=== PATIENT | male | born 1965 | race Caucasian/White ===

== ENCOUNTER 2023-08-19 11:54 | Outpatient (OUT) | payer BC, SELFPAY ==
[2023-08-19 12:10] LABS: Basophils Percent Auto 0.5 % (0.2-2.0); Eosinophils Absolute Auto 0.2 10^3/uL (0.0-0.7); Eosinophils Percent Auto 2.4 % (0.9-7.0); Hematocrit 49.7 % (42.0-54.0); Hemoglobin 16.3 g/dL (14.0-18.0); Immature Granulocytes Abs Auto 0.03 10^3/uL (0.00-0.03); Immature Granulocytes Pct Auto 0.4 % (0.0-0.5); Lymphocytes Absolute Auto 2.9 10^3/uL (1.2-3.8); Lymphocytes Percent Auto 37.5 % (20.5-60.0); Mean Corpuscular HGB Conc 32.8 g/dL (29.9-35.2); Mean Corpuscular Hemoglobin 30.5 pg (25.9-34.0); Mean Corpuscular Volume 93.1 fL (80.0-94.0); Mean Platelet Volume 9.5 fL (9.5-13.5); Monocytes Absolute Auto 0.6 10^3/uL (0.3-0.8); Monocytes Percent Auto 7.5 % (1.7-12.0); Neutrophils Percent Auto 51.7 % (43.0-75.0); Platelet Count 218 10^3/uL (150-450); Red Blood Count 5.34 10^6/uL (4.70-6.10); Red Cell Distribution Width 12.6 % (11.0-15.0); White Blood Count 7.8 10^3/uL (4.0-11.0)
[2023-08-19 12:48] LABS: Estimated Average Glucose 126 mg/dL
[2023-08-19 12:53] LABS: Alanine Aminotransferase 44 U/L (16-63); Albumin Globulin Ratio 0.9; Albumin Level 3.6 g/dL (3.4-5.0); Alkaline Phosphatase 58 U/L (46-116); Anion Gap 13.1; Aspartate Amino Transferase 19 U/L (15-37); BUN Creatinine Ratio 11.8; Bilirubin Total 0.9 mg/dL (0.2-1.0); Carbon Dioxide 27.1 mmol/L (21.0-32.0); Chloride 105 mmol/L (98-107); Chol HDL Ratio 6.6; Cholesterol 279 mg/dL (<=200); Estimated GFR (African America 50 (>=60); Estimated GFR (Non-African Ame 41 (>=60); Free T3 3.11 pg/mL (2.18-3.98); Glucose 110 mg/dL (74-106); HDL Cholesterol 42 mg/dL (40-60); Potassium 4.2 mmol/L (3.5-5.1); Sodium 141 mmol/L (136-145); Thyroid Stimulating Hormone 3.377 uIU/mL (0.358-3.740); Total Protein 7.6 g/dL (6.4-8.2); Triglycerides 146 mg/dL (<=150); VLDL CHOLESTEROL 29.2 mg/dL
[2023-08-19 13:15] LABS: Prostate Specific Antigen Scrn 0.58 ng/mL (<=4.00)
== END 2023-08-19 11:55 | disposition home or self-care (01) ==
LOC: LAB 11:54
PROVIDERS: PCP Family Medicine; Visit Provider Family Medicine
DX: Z00.00 Encounter for general adult medical examination without abnormal findings (principal); E78.5 Hyperlipidemia, unspecified; R73.09 Other abnormal glucose; Z12.12 Encounter for screening for malignant neoplasm of rectum
CPT/HCPCS: 36415; 80053; 80061; 83036; 84436; 84443; 84481; 85025; G0103

== ENCOUNTER 2023-08-24 06:50 | Outpatient (OUT) | payer BC, SELFPAY ==
--- OUTSIDE RECORDS SUMMARY | 2023-08-24 06:52 | XMS_ITS | CCD ---
Author Name Unknown Address [address] [place] [id number] Organization [facility] Care Team Providers Care Cutter Operator Helper Name Role Phone ELZBIETA, DR GOLDSMITH Admitting Unavailable HOY, DR GOLDSMITH Attending Unavailable HOY, DR GOLDSMITH Primary Care Unavailable HOY, DR GOLDSMITH Admitting Unavailable HOY, DR GOLDSMITH Attending Unavailable HOY, DR GOLDSMITH Primary Care Unavailable HOY, DR GOLDSMITH Consulting Unavailable HOY, DR GOLDSMITH Admitting Unavailable HOY, DR GOLDSMITH Attending Unavailable SONALY, DR GOLDSMITH Primary Care Unavailable ELZBIETA, DR GOLDSMITH Consulting Unavailable Problems Problem Classification Problem Date Documented Da te Episodic/Chronic Disorders of lipid metabolism (4 sources) Hyperlipidemia, unspecified; Translations: [HYPERLIPIDEMIA UNSPECIFIED] Onset: 10-17-2021 Chronic Results Test Name Value Interpretation Reference Range Facil ity INSULINon 08-21-2022 Insulin 34.0 uIU/mL Critically high 2.6-24.9 [facility] Comment on above: Performed By: #### I NSULIN #### [facility] [address] [place] [address] Dr. Rajan Kraft CBC AUTO DIFFon 08-20-2022 BASO # 0.1 103/ul Normal 0.0-0.1 [facility] Comment on above: Performed By: #### C BC #### [facility] [address] [address] [address] Rajan Kraft Basophils/100 WBC (Bld) 0.6 % Normal 0.2-2.0 [facility] Comment on above: Performed By: #### C BC #### [facility] [address] [address] [address] Rajan Kraft EO # 0.2 103/ul Normal 0.0-0.7 [facility] Comment on above: Performed By: #### C BC #### [facility] [address] [place] [address] Dr. Rajan Kraft Eosinophils/100 WBC (Bld) 1.9 % Normal 0.9-7.0 [facility] Comment on above: Performed By: #### C BC #### [facility] [address] [place] [address] Dr. Rajan Kraft Erythrocyte distribution width (RBC) [Ratio] 12.8 % Normal 11.0-15.0 [facility] Comment on above: Performed By: #### C BC #### [facility] [address] [place] [address] Dr. Rajan Kraft Hematocrit (Bld) [Volume fraction] 51.8 % Normal 42.0-54.0 [facility] Comment on above: Performed By: #### C BC #### [facility] [address] [place] [address] Dr. Rajan Kraft Hemoglobin (Bld) [Mass/Vol] 15.8 g/dL Normal 14.0-18.0 [facility] Comment on above: Performed By: #### C BC #### [facility] [address] [place] [address] Dr. Rajan Kraft IG # 0.02 10e3/ul Normal 0.00-0.03 [facility] Comment on above: Performed By: #### C BC #### [facility] [address] [place] [address] Dr. Rajan Kraft IG % 0.2 % Normal 0.0-0.5 [facility] Comment on above: Performed By: #### C BC #### [facility] [address] [place] [address] Dr. Rajan Kraft LYMPH # 2.6 103/ul Normal 1.2-3.8 [facility] Comment on above: Performed By: #### C BC #### [facility] [address] [place] [address] Dr. Rajan Kraft Lymphocytes/100 WBC (Bld) 32.0 % Normal 20.5-60.0 [facility] Comment on above: Performed By: #### C BC #### [facility] [address] [place] [address] Dr. Rajan Kraft MANUAL DIFF REQ NO Normal [facility] Comment on above: Performed By: #### C BC #### [facility] [address] [place] [address] Dr. Rajan Kraft MCH (RBC) [Entitic mass] 31.2 pg Normal 25.9-34.0 [facility] Comment on above: Performed By: #### C BC #### [facility] [address] [place] [address] Dr. Rajan Kraft MCHC (RBC) [Mass/Vol] 30.5 g/dL Normal 29.9-35.2 [facility] Comment on above: Performed By: #### C BC #### [facility] [address] [place] [address] Dr. Rajan Kraft MCV (RBC) [Entitic vol] 102.4 fL Critically high 80.0-94.0 [facility] Comment on above: Performed By: #### C BC #### [facility] [address] [place] [address] Dr. Rajan Kraft MONO # 0.5 103/ul Normal 0.3-0.8 [facility] Comment on above: Performed By: #### C BC #### [facility] [address] [place] [address] Dr. Rajan Kraft Monocytes/100 WBC (Bld) 6.4 % Normal 1.7-12.0 [facility] Comment on above: Performed By: #### C BC #### [facility] [address] [place] [address] Dr. Rajan Kraft NEUT # 4.8 103/ul Normal 1.4-6.5 [facility] Comment on above: Performed By: #### C BC #### [facility] [address] [place] [address] Dr. Rajan Kraft Neutrophils/100 WBC (Bld) 58.9 % Normal 43.0-75.0 [facility] Comment on above: Performed By: #### C BC #### [facility] [address] [address] [address] Rajan Kraft Platelet mean volume (Bld) [Entitic vol] 9.7 fL Normal 9.5-13.5 [facility] Comment on above: Performed By: #### C BC #### [facility] [address] [address] [address] Rajan Kraft PLT 207 103/ul Normal 150-450 [facility] Comment on above: Performed By: #### C BC #### [facility] [address] [place] [address] Dr. Rajan Kraft RBC 5.06 106/ul Normal 4.70-6.10 [facility] Comment on above: Performed By: #### C BC #### [facility] [address] [place] [address] Dr. Rajan Kraft WBC 8.2 103/ul Normal 4.0-11.0 [facility] Comment on above: Performed By: #### C BC #### [facility] [address] [place] [address] Dr. Rajan Kraft GLYCOHEMOGLOBIN A1Con 2022 ADA RECOMMENDATION SEE BELOW Normal [facility] Comment on above: Result Comment: ADA RECOMMENDED LIMIT 4.0 - 6.0 ADA THERAPEUTIC TARGET < 7.0 ACTION SUGGESTED > 7.0 Performed By: #### A 1C #### [facility] [address] [place] [address] Dr. Rajan Kraft Glucose [Mass/Vol] 123 mg/dL Normal [facility] Comment on above: Performed By: #### A 1C #### [facility] [address] [place] [address] Dr. Rajan Kraft HbA1c (Bld) [Mass fraction] 5.9 % Normal 4.5-6.2 [facility] Comment on above: Performed By: #### A 1C #### [facility] [address] [place] [address] Dr. Rajan Kraft LIPID PROFILEon 08-20-2022 CHOL-HDL RATIO NORM SEE BELOW Normal [facility] Comment on above: Result Comment: 3.3 - 4.4 LOW RISK 4.4 - 7.1 AVERAGE RISK 7.1 - 11.0 MODERATE RISK >11.0 HIGH RISK Performed By: #### C MP, URIC, LIPID #### [facility] [address] [address] [address] Rajan Kraft Cholesterol [Mass/Vol] 183 mg/dL Normal <=200 [facility] Comment on above: Performed By: #### C MP, URIC, LIPID #### [facility] [address] [address] [address] Rajan Kraft Cholesterol in HDL [Mass/Vol] 47 mg/dL Normal 40-60 [facility] Comment on above: Performed By: #### C MP, URIC, LIPID #### [facility] [address] [address] [address] Rajan Kraft Cholesterol in LDL [Mass/Vol] 115.8 mg/dL Normal [facility] Comment on above: Performed By: #### C MP, URIC, LIPID #### [facility] [address] [address] [address] Rajan Kraft Cholesterol.total/Cho lesterol in HDL [Mass ratio] 3.9 {ratio} Normal [facility] Comment on above: Performed By: #### C MP, URIC, LIPID #### [facility] [address] [address] [address] Rajan Kraft HDL NORMAL > or = 60 mg/dl - LOW CARDIOVASCULAR RISK <40 mg/dl - HIGH CARDIOVASCULAR RISK Normal [facility] Comment on above: Performed By: #### C MP, URIC, LIPID #### [facility] [address] [address] [address] Rajan Kraft LDL CALC NORMAL SEE BELOW Normal [facility] Comment on above: Result Comment: <100 mg/dl OPTIMAL 100 - 129 mg/dl NEAR OR ABOVE OPTIMAL 130 - 159 mg/dl BORDERLINE HIGH 160 - 189 mg/dl HIGH >190 mg/dl VERY HIGH Performed By: #### C MP, URIC, LIPID #### [facility] [address] [address] [address] Rajan Kraft Triglyceride [Mass/Vol] 101 mg/dL Normal <=150 [facility] Comment on above: Performed By: #### C MP, URIC, LIPID #### [facility] [address] [address] [address] Rajan Kraft VLDL CALC 20.2 mg/dL Normal [facility] Comment on above: Performed By: #### C MP, URIC, LIPID #### [facility] [address] [place] [address] Dr. Rajan Kraft PROF 14(COMP METB)on 023 Albumin [Mass/Vol] 3.8 g/dL Normal 3.4-5.0 [facility] Comment on above: Performed By: #### C MP, URIC, LIPID #### [facility] [address] [place] [address] Dr. Rajan Kraft Albumin/Globulin [Mass ratio] 1.1 {ratio} Normal [facility] Comment on above: Performed By: #### C MP, URIC, LIPID #### [facility] [address] [place] [address] Dr. Rajan Kraft ALP [Catalytic activity/Vol] 59 U/L Normal 46-116 [facility] Comment on above: Performed By: #### C MP, URIC, LIPID #### [facility] [address] [place] [address] Dr. Rajan Kraft ALT [Catalytic activity/Vol] 55 U/L Normal 16-63 [facility] Comment on above: Performed By: #### C MP, URIC, LIPID #### [facility] [address] [place] [address] Dr. Rajan Kraft Anion gap [Moles/Vol] 13.7 mmol/L Normal [facility] Comment on above: Performed By: #### C MP, URIC, LIPID #### [facility] [address] [place] [address] Dr. Rajan Kraft AST [Catalytic activity/Vol] 26 U/L Normal 15-37 [facility] Comment on above: Performed By: #### C MP, URIC, LIPID #### [facility] [address] [place] [address] Dr. Rajan Kraft Bilirubin [Mass/Vol] 0.8 mg/dL Normal 0.2-1.0 [facility] Comment on above: Performed By: #### C MP, URIC, LIPID #### [facility] [address] [place] [address] Dr. Rajan Kraft Calcium [Mass/Vol] 8.9 mg/dL Normal 8.5-10.1 [facility] Comment on above: Performed By: #### C MP, URIC, LIPID #### [facility] [address] [place] [address] Dr. Rajan Kraft Chloride [Moles/Vol] 105 mmol/L Normal 98-107 [facility] Comment on above: Performed By: #### C MP, URIC, LIPID #### [facility] [address] [place] [address] Dr. Rajan Kraft CO2 [Moles/Vol] 28.2 mmol/L Normal 21.0-32.0 [facility] Comment on above: Performed By: #### C MP, URIC, LIPID #### [facility] [address] [place] [address] Dr. Rajan Kraft Creatinine [Mass/Vol] 1.68 mg/dL Critically high 0.70-1.30 [facility] Comment on above: Performed By: #### C MP, URIC, LIPID #### [facility] [address] [place] [address] Dr. Rajan Kraft EGFR-AF SWEDISH 51 mL/min/1.73m2 Critically low >=60 [facility] Comment on above: Performed By: #### C MP, URIC, LIPID #### [facility] [address] [place] [address] Dr. Rajan Kraft EGFR-NON AF SWEDISH 42 mL/min/1.73m2 Critically low >=60 [facility] Comment on above: Performed By: #### C MP, URIC, LIPID #### [facility] [address] [place] [address] Dr. Rajan Kraft Globulin (S) [Mass/Vol] 3.6 g/dL Normal [facility] Comment on above: Performed By: #### C MP, URIC, LIPID #### [facility] [address] [address] [address] Rajan Kraft Glucose [Mass/Vol] 102 mg/dL Normal 74-106 [facility] Comment on above: Performed By: #### C MP, URIC, LIPID #### [facility] [address] [address] [address] Rajan Kraft Potassium [Moles/Vol] 3.9 mmol/L Normal 3.5-5.1 [facility] Comment on above: Performed By: #### C MP, URIC, LIPID #### [facility] [address] [address] [address] Rajan Kraft Protein [Mass/Vol] 7.4 g/dL Normal 6.4-8.2 [facility] Comment on above: Performed By: #### C MP, URIC, LIPID #### [facility] [address] [place] [address] Dr. Rajan Kraft Sodium [Moles/Vol] 143 mmol/L Normal 136-145 [facility] Comment on above: Performed By: #### C MP, URIC, LIPID #### [facility] [address] [address] [address] Rajan Kraft Urea nitrogen [Mass/Vol] 21.0 mg/dL Critically high 7.0-18.0 [facility] Comment on above: Performed By: #### C MP, URIC, LIPID #### [facility] [address] [address] [address] Rajan Kraft Urea nitrogen/Creatinine [Mass ratio] 12.5 mg/mg Normal [facility] Comment on above: Performed By: #### C MP, URIC, LIPID #### [facility] [address] [place] [address] Dr. Rajan Kraft URIC ACID SERUMon 08-20-2022 Urate [Mass/Vol] 7.6 mg/dL Critically high 3.5-7.2 [facility] Comment on above: Performed By: #### C MP, URIC, LIPID #### [facility] [address] [address] [address] Rajan Kraft LIPID PROFILEon 10-17-2021 CHOL-HDL RATIO NORM SEE BELOW Normal [facility] Comment on above: Result Comment: 3.3 - 4.4 LOW RISK 4.4 - 7.1 AVERAGE RISK 7.1 - 11.0 MODERATE RISK >11.0 HIGH RISK Performed By: #### L IPID, LIVER #### [facility] [address] [address] [address] Rajan Kraft Cholesterol [Mass/Vol] 192 mg/dL Normal <=200 [facility] Comment on above: Performed By: #### L IPID, LIVER #### [facility] [address] [address] [address] Rajan Kraft Cholesterol in HDL [Mass/Vol] 37 mg/dL Normal [facility] Comment on above: Performed By: #### L IPID, LIVER #### [facility] [address] [address] [address] Rajan Kraft Cholesterol in LDL [Mass/Vol] 127.8 mg/dL Normal [facility] Comment on above: Performed By: #### L IPID, LIVER #### [facility] [address] [address] [address] Rajan Kraft Cholesterol.total/Cho lesterol in HDL [Mass ratio] 5.2 {ratio} Normal [facility] Comment on above: Performed By: #### L IPID, LIVER #### [facility] [address] [address] [address] Rajan Kraft HDL NORMAL > or = 60 mg/dl - LOW CARDIOVASCULAR RISK <40 mg/dl - HIGH CARDIOVASCULAR RISK Normal [facility] Comment on above: Performed By: #### L IPID, LIVER #### [facility] [address] [address] [address] Rajan Kraft LDL CALC NORMAL SEE BELOW Normal [facility] Comment on above: Result Comment: <100 mg/dl OPTIMAL 100 - 129 mg/dl NEAR OR ABOVE OPTIMAL 130 - 159 mg/dl BORDERLINE HIGH 160 - 189 mg/dl HIGH >190 mg/dl VERY HIGH Performed By: #### L IPID, LIVER #### [facility] [address] [address] [address] Rajan Kraft Triglyceride [Mass/Vol] 136 mg/dL Normal <=150 [facility] Comment on above: Performed By: #### L IPID, LIVER #### [facility] [address] [place] [address] Dr. Rajan Kraft VLDL CALC 27.2 mg/dL Normal [facility] Comment on above: Performed By: #### L IPID, LIVER #### [facility] [address] [address] [address] Rajan Kraft LIVER PROFILEon 10-17-2021 Albumin [Mass/Vol] 3.6 g/dL Normal 3.5-5.0 [facility] Comment on above: Performed By: #### L IPID, LIVER #### [facility] [address] [place] [address] Dr. Rajan Kraft Albumin/Globulin [Mass ratio] 1.0 {ratio} Normal [facility] Comment on above: Performed By: #### L IPID, LIVER #### [facility] [address] [place] [address] Dr. Rajan Kraft ALP [Catalytic activity/Vol] 63 U/L Normal 38-126 [facility] Comment on above: Performed By: #### L IPID, LIVER #### [facility] [address] [place] [address] Dr. Rajan Kraft ALT [Catalytic activity/Vol] 49 U/L Normal 21-72 [facility] Comment on above: Performed By: #### L IPID, LIVER #### [facility] [address] [place] [address] Dr. Rajan Kraft AST [Catalytic activity/Vol] 23 U/L Normal 17-59 [facility] Comment on above: Performed By: #### L IPID, LIVER #### [facility] [address] [place] [address] Dr. Rajan Kraft BILI, CONJUGATED 0.1 mg/dL Normal 0.0-0.3 [facility] Comment on above: Performed By: #### L IPID, LIVER #### [facility] [address] [place] [address] Dr. Rajan Kraft Bilirubin [Mass/Vol] 0.7 mg/dL Normal 0.2-1.3 [facility] Comment on above: Performed By: #### L IPID, LIVER #### [facility] [address] [address] [address] Rajan Kraft Globulin (S) [Mass/Vol] 3.6 g/dL Normal [facility] Comment on above: Performed By: #### L IPID, LIVER #### [facility] [address] [id number] [address] Rajan Kraft Protein [Mass/Vol] 7.2 g/dL Normal 6.1-8.2 [facility] Comment on above: Performed By: #### L IPID, LIVER #### [facility] [address] [address] [address] Rajan Kraft General Surgery Office/Clini c Noteon 09-30-2021 General Surgery Office/Clinic Note Chief Complaint post operative follow up HPI Staff 16 day post operative follow up post colonoscopy with descending colon and sigmoid polypectomies. Denies abdominal pain or rectal bleeding. History of Present Illness 16 days s/p screening colonoscopy and polypectomy x 2 for 4 mm descending and sigmoid colon polyps; doing well denies pain or blood in stools; pathology with tubular adenoma in desc colon; and sigmoid colon polyp hyperplastic. Review of Systems ROS - Provider Constitutional: no fever, no sweats, no weight loss. Eyes: no glasses, no blurred vision, no visual loss. ENMT: no dentures, no hoarseness, no swallowing difficulties, no hearing loss, no ear infection(s), no nose bleeds. Cardiovascular: normal blood pressure, no chest pain, regular heartbeat, no heart murmur. Respiratory: no shortness of breath, no cough, no asthma, no wheezing. Gastrointestinal: no nausea, no vomiting, no diarrhea, no constipation, no blood in stool, no change in bowel habits, no abdominal pain, no hepatitis. Genitourinary: no kidney stones, no urine infection, no dysuria. Musculoskeletal: no pain, no weakness. Skin: no changing moles, no rash, no skin lumps. Neurologic: no seizures, no epilepsy, no headache. Psychiatric: no emotional or psychiatric problem. Heme/Lymph: no bleeding problems, no anemia, no blood clots, no transfusions. Allergy/Immunologic: no swollen lymph nodes/glands, no IV drug abuse. Other: Additional ROS info: Except as noted in the above Review of Systems and in the History of Present Illness, all other systems have been reviewed and are negative or noncontributory. Physical Exam Vitals & Measurements T: 36.3 ?C(Temporal Artery) Assessment/Plan 1. Benign neoplasm of descending colon (D12.4: Benign neoplasm of descending colon) recommend f/u colonoscopy in 5 years for surveillance, call sooner if problems/questions. 2. Hyperplastic polyp of sigmoid colon (K63.5: Polyp of colon) see # 1 Follow-up No qualifying data available Problem List/Past Medical History Ongoing BMI 31.0-31.9,adult GERD (gastroesophageal reflux disease) Hyperlipidemia Hyperplastic polyp of sigmoid colon Screening for malignant neoplasm of colon Tubular adenoma of colon Historical No qualifying data Procedure/Surgical History Colonoscopy (08/19/2021), Arthroscopy of shoulder, Rotator cuff repair. Medications simvastatin 20 mg Tab, 20 mg= 1 tab(s), Oral, Once a day (at bedtime) Allergies No Known Allergies No Known Medication Allergies Social History Alcohol - Denies Alcohol Use, 07/10/2021 Substance Abuse - Denies Substance Abuse, 07/10/2021 Tobacco Never (less than 100 in lifetime) Tobacco Use:. Never Smokeless Tobacco Use:., 07/10/2021 Family History Primary malignant neoplasm of lung: Mother and Father. Immunizations Vaccine Date Status SARS-CoV-2 (COVID-19) Ad26 vaccine 11/11/2020 Recorded SARS-CoV-2 (COVID-19) Ad26 vaccine 10/21/2020 Recorded Normal [facility] Comment on above: Result Comment: Elec tronically Signed By: LOUIE MONTERO, Ravindra Srivastava\.br\Date and Time Signed: 09/30/21 13:24 EST Ambulatory Visit Summaryon 0 09-04-2021 Ambulatory Visit Summary NITHIN VU :1965 Visit Date:09/04/2021 Ambulatory Visit Instructions Your Care Team Attending Physician - Ravindra COLLADO MD Primary Care Physician - Agus Ruff MD This Is Your Medications List simvastatin (simvastatin 20 mg Tab) Procedures Performed Colonoscopy (08/19/2021), Arthroscopy of shoulder, Rotator cuff repair. Discharge Vitals Temperature (Temporal Artery) 36.3 ?C Medications What How Much When Instructions Unchanged simvastatin (simvastatin 20 mg Tab) 1 Tablets By Mouth Once a day (at bedtime) Allergies No Known Allergies No Known Medication Allergies Problems Ongoing - Any problem that you are currently receiving treatment for. BMI 31.0-31.9,adult GERD (gastroesophageal reflux disease) Hyperlipidemia Screening for malignant neoplasm of colon [facility] Reminderson 09-04-2021 Reminders - From: Hamida Israel LPN To: [facility] - Clinical; Sent: 09/04/2021 15:30:08 EST Show up: 07/19/2026 07:00:00 EST Subject: colonoscopy recall Due Date/Time: 08/19/2026 07:00:00 EST Reminder/Recall Patient is due for colonoscopy 08/19/2026 due to history of tubular adenoma. Normal [facility] Pathology Noteon 08-27-2021 Pathology Note [id number] 4#1.00CD:127 [facility] Outside Colonoscopyon 2021 Outside Colonoscopy [id number] #1.00CD:127 [facility] Lab Reportson 08-17-2021 Lab Reports [id number] #1.00CD:127 [facility] Pre-Certification Formon Pre-Certification Form [id number] 8#1.00CD:127 [facility] July 15, 2021 Agus Ruff, [address] [facility] [address] Re: NITHIN VU Date of : 1965 Thank you for your referral of Nithin Vu who was seen on consultation on 07/10/2021 for screening colonoscopy. I have enclosed my consultation note for your review. I will be happy to follow Nithin. Sincerely, Ravindra Collado MD General Surgery Normal [facility] Consent for Procedure/Surger yon 07-13-2021 Consent for Procedure/Surgery [id number] #1.00CD:127 Normal [facility] Patient Educationon 07-12-20 21 Patient Education Radiology Colonoscopy, Adult, Care After This sheet gives you information about how to care for yourself after your procedure. Your health care provider may also give you more specific instructions. If you have problems or questions, contact your health care provider. What can I expect after the procedure? After the procedure, it is common to have: ? A small amount of blood in your stool for 24 hours after the procedure. ? Some gas. ? Mild abdominal cramping or bloating. Follow these instructions at home: General instructions ? For the first 24 hours after the procedure: ? Do not drive or use machinery. ? Do not sign important documents. ? Do not drink alcohol. ? Do your regular daily activities at a slower pace than normal. ? Eat soft, uqae-ag-ytbuuo foods. ? Take wsli-ilk-[id number] or prescription medicines only as told by your health care provider. Relieving cramping and bloating ? Try walking around when you have cramps or feel bloated. ? Apply heat to your abdomen as told by your health care provider. Use a heat source that your health care provider recommends, such as a moist heat pack or a heating pad. ? Place a towel between your skin and the heat source. ? Leave the heat on for 20?30 minutes. ? Remove the heat if your skin turns bright red. This is especially important if you are unable to feel pain, heat, or cold. You may have a greater risk of getting burned. Eating and drinking ? Drink enough fluid to keep your urine pale yellow. ? Resume your normal diet as instructed by your health care provider. Avoid heavy or fried foods that are hard to digest. ? Avoid drinking alcohol for as long as instructed by your health care provider. Contact a health care provider if: ? You have blood in your stool 2?3 days after the procedure. Get help right away if: ? You have more than a small spotting of blood in your stool. ? You pass large blood clots in your stool. ? Your abdomen is swollen. ? You have nausea or vomiting. ? You have a fever. ? You have increasing abdominal pain that is not relieved with medicine. Summary ? After the procedure, it is common to have a small amount of blood in your stool. You may also have mild abdominal cramping and bloating. ? For the first 24 hours after the procedure, do not drive or use machinery, sign important documents, or drink alcohol. ? Contact your health care provider if you have a lot of blood in your stool, nausea or vomiting, a fever, or increased abdominal pain. This information is not intended to replace advice given to you by your health care provider. Make sure you discuss any questions you have with your health care provider. Document Released: 03/08/2005 Document Revised: 05/17/2018 Document Reviewed: 10/05/2016 [employer] Patient Education ? 2019 [employer]. [facility] Ambulatory Clinical Summaryo n 07-10-2021 Ambulatory Clinical Summary {[id number] [facility] Physician Referralon 021 Physician Referral [phone] [id number] #[id number] [facility] Encounters Encounter Date Encounter Type Care Provider Facility Start: 08-20-2022 End: 08-21-[address] AGUS RUFF Facility:[facility] Start: 10-17-2021 End: 10-18-[address] AGUS RUFF Facility:[facility] Start: 09-08-[address] AGUS RUFF Facility :[facility] Procedures Date Procedure Procedure Detail Performing Clinician Start: 08-20-[address] ABDIEL RUFF Comment on above: Performed By: #### P [facility] #### [facility] [address] [place] [address] Dr. Rajan Kraft Payers Date Payer Category Payer Unknown [id number] 1965 Unknown [id number] 1964 Unknown [id number] 1959 Self-pay [id number] 1960 Unknown [id number] Clinical Note 07-12-2021 Note Date & Type Note Facility 07-12-2021 Note Chief Complaint consultation for screening colonoscopy [facility] Staff 56 year old male presents on consultation from Dr. Ruff for screening colonoscopy. Denies abdominal or rectal pain. No rectal bleeding or change in bowel habits. Denies nausea or vomiting. No unexplained weight loss. Never had colonoscopy in the past. No known family history of colon cancer. History of Present Illness 56 yo male referred for colorectal screening, denies change in bms or blood in stools, no abdominal complaints; no previous colonoscopy, no abdominal operations; denies asa or NSAID use; no SBE prophylaxis; no fmhx of GI malignancy or IBD. Review of Systems PHQ Score Initial Depression Screen Score: 0 ROS - Provider Constitutional: no fever, no sweats, no weight loss. Eyes: no glasses, no blurred vision, no visual loss. ENMT: no dentures, no hoarseness, no swallowing difficulties, no hearing loss, no ear infection(s), no nose bleeds. Cardiovascular: normal blood pressure, no chest pain, regular heartbeat, no heart murmur. Respiratory: no shortness of breath, no cough, no asthma, no wheezing. Gastrointestinal: no nausea, no vomiting, no diarrhea, no constipation, no blood in stool, no change in bowel habits, no abdominal pain, no hepatitis. Genitourinary: no kidney stones, no urine infection, no dysuria. Musculoskeletal: no pain, no weakness. Skin: no changing moles, no rash, no skin lumps. Neurologic: no seizures, no epilepsy, no headache. Psychiatric: no emotional or psychiatric problem. Heme/Lymph: no bleeding problems, no anemia, no blood clots, no transfusions. Allergy/Immunologic: no swollen lymph nodes/glands, no IV drug abuse. Other: Additional ROS info: Except as noted in the above Review of Systems and in the History of Present Illness, all other systems have been reviewed and are negative or noncontributory. Physical Exam Vitals & Measurements T: 36.2 ?C(Temporal Artery) HR: 80(Peripheral) RR: 16 BP: 122/84 HT: 185.4 cm HT: 185.42 cm WT: 109.4 kg WT: 109.4 kg BMI: 31.82 HEENT: normal conjunctiva, sclera clear, no scleral icterus, EOM intact, PERRLA, oral mucosa moist without lesions. Neck: trachea midline, no mass, symmetric, no thyromegaly or nodules, no adenopathy Respiratory: lungs CTA, respirations non labored. Cardiovascular: regular rate and rhythm, no murmur, no pedal edema or varicosities. Gastrointestinal: soft, non distended, no tenderness, no masses, no palpable hernias, diastasis recti no, no hepatosplenomegaly; normal bs Lymphatic: no cervical adenopathy, Musculoskeletal: normal gait, digits and nails without infection, nodes, cyanosis, clubbing. Skin: no rashes, no lesions, no ulcers, no subcutaneous nodules, induration. Psychiatric/Neuro: oriented to time, place, person, judgement normal, affect appropriate for age, insight intact, no focal deficits. Tests: review of old records completed, _ surgical options, risks, and possible complications with patient. Assessment/Plan 1. Screening for malignant neoplasm of colon (Z12.11: Encounter for screening for malignant neoplasm of colon) plan colonoscopy under anesthesia, informed consent obtained. Follow-up No qualifying data available Patient Education Colonoscopy, Adult, Care After Problem List/Past Medical History Ongoing BMI 31.0-31.9,adult GERD (gastroesophageal reflux disease) Hyperlipidemia Screening for malignant neoplasm of colon Historical No qualifying data Procedure/Surgical History Arthroscopy of shoulder, Rotator cuff repair. Medications simvastatin 20 mg Tab, 20 mg= 1 tab(s), Oral, Once a day (at bedtime) Allergies No Known Allergies No Known Medication Allergies Social History Alcohol - Denies Alcohol Use, 07/10/2021 Substance Abuse - Denies Substance Abuse, 07/10/2021 Tobacco Never (less than 100 in lifetime) Tobacco Use:. Never Smokeless Tobacco Use:., 07/10/2021 Family History Primary malignant neoplasm of lung: Mother and Father. Immunizations Vaccine Date Status SARS-CoV-2 (COVID-19) Ad26 vaccine 11/11/2020 Recorded SARS-CoV-2 (COVID-19) Ad26 vaccine 10/21/2020 Recorded [facility] Comment on above: Result Comment: Elec tronically Signed By: LOUIE MONTERO, Ravindra Irving\Date and Time Signed: 07/12/21 19:24 EST Summary Purpose Family History No Family History Records FoundNo Family History Records Found Advance Directives No Advanced Directives Records FoundNo Advanced Directives Records Found Additional Source Comments (unrecognized sect ion and content) No Status Records FoundNo Status Records Found INFORMATION SOURCE (unrecogn ized section and content) DATE CREATED AUTHOR 10/24/2021 [facility] DATE CREATED AUTHOR AUTHOR'S ORGANIZ ATION 08/21/2022 [facility] FOR RECORDS PERTAINING TO PATIENTS WHO ARE OR HAVE BEEN ENROLLED IN A CHEMICAL DEPENDENCY/SUBSTANCEABUSE PROGRAM, SOME INFORMATION MAY BE OMITTED. This clinical summary was aggregated from multiple sources. Caution should be exercised in using it in the provision of clinical care. This summary normalizes information from multiple sources, and as a consequence, information in this document may materially change the coding, format and clinical context of patient data. In addition, data may be omitted in some cases. CLINICAL DECISIONS SHOULD BE BASED ON THE PRIMARY CLINICAL RECORDS. [facility] [employer] [facility]. provides no warranty or guarantee of the accuracy or completeness of information in this document.
[2023-08-24 07:44] LABS: Anion Gap 14.9; BUN Creatinine Ratio 13.8; Calcium 9.1 mg/dL (8.5-10.1); Carbon Dioxide 25.2 mmol/L (21.0-32.0); Chloride 107 mmol/L (98-107); Estimated GFR (African America 49 (>=60); Estimated GFR (Non-African Ame 40 (>=60); Glucose 92 mg/dL (74-106); Potassium 4.1 mmol/L (3.5-5.1); Sodium 143 mmol/L (136-145)
== END 2023-08-24 06:51 | disposition home or self-care (01) ==
LOC: LAB 06:50
PROVIDERS: PCP Family Medicine; Visit Provider Family Medicine
DX: N28.9 Disorder of kidney and ureter, unspecified (principal)
CPT/HCPCS: 36415; 80048

== ENCOUNTER 2023-08-27 08:44 | Outpatient (REF) | payer BC, SELFPAY ==
--- OUTSIDE RECORDS SUMMARY | 2023-08-27 08:49 | XMS_ITS | CCD ---
Author Name Unknown Address [address] [place] [id number] Organization [facility] Care Team Providers Care Service Clerk Name Role Phone ELZBIETA, DR GOLDSMITH Admitting [...] 08-21-2022 Insulin 34.0 uIU/mL Critically high 2.6-24.9 [facility] Comment on above: Performed By: #### I NSULIN #### [facility] [address] [place] [address] Dr. Rajan Kraft CBC AUTO DIFFon 08-20-2022 BASO # 0.1 103/ul Normal 0.0-0.1 [facility] Comment on above: Performed By: #### C BC #### [facility] [address] [place] [address] [address] Rajan Kraft Basophils/100 WBC (Bld) 0.6 % Normal 0.2-2.0 [facility] Comment on above: Performed By: #### C BC #### [facility] [address] [place] [address] [address] Rajan Kraft EO # 0.2 103/ul Normal 0.0-0.7 [facility] Comment on above: Performed By: #### C BC #### [facility] [address] [place] [address] Dr. Rajan Kraft Eosinophils/100 WBC (Bld) 1.9 % Normal 0.9-7.0 [facility] Comment on above: Performed By: #### C BC #### [facility] [address] [place] [address] Dr. Rajan Kraft Erythrocyte distribution width (RBC) [Ratio] 12.8 % Normal 11.0-15.0 [facility] Comment on above: Performed By: #### C BC #### [facility] [address] [place] [address] Dr. Rajan Kraft Hematocrit (Bld) [Volume fraction] 51.8 % Normal 42.0-54.0 [facility] Comment on above: Performed By: #### C BC #### [facility] [address] [place] [address] Dr. Rajan Kraft Hemoglobin (Bld) [Mass/Vol] 15.8 g/dL Normal 14.0-18.0 [facility] Comment on above: Performed By: #### C BC #### [facility] [address] [place] [address] Dr. Rajan Kraft IG # 0.02 10e3/ul Normal 0.00-0.03 [facility] Comment on above: Performed By: #### C BC #### [facility] [address] [place] [address] Dr. Rajan Kraft IG % 0.2 % Normal 0.0-0.5 [facility] Comment on above: Performed By: #### C BC #### [facility] [address] [place] [address] Dr. Rajan Kraft LYMPH # 2.6 103/ul Normal 1.2-3.8 [facility] Comment on above: Performed By: #### C BC #### [facility] [address] [place] [address] Dr. Rajan Kraft Lymphocytes/100 WBC (Bld) 32.0 % Normal 20.5-60.0 [facility] Comment on above: Performed By: #### C BC #### [facility] [address] [place] [address] Dr. Rajan Kraft MANUAL DIFF REQ NO Normal [facility] Comment on above: Performed By: #### C BC #### [facility] [address] [place] [address] Dr. Rajan Kraft MCH (RBC) [Entitic mass] 31.2 pg Normal 25.9-34.0 [facility] Comment on above: Performed By: #### C BC #### [facility] [address] [place] [address] Dr. Rajan Kraft MCHC (RBC) [Mass/Vol] 30.5 g/dL Normal 29.9-35.2 [facility] Comment on above: Performed By: #### C BC #### [facility] [address] [place] [address] Dr. Rajan Kraft MCV (RBC) [Entitic vol] 102.4 fL Critically high 80.0-94.0 [facility] Comment on above: Performed By: #### C BC #### [facility] [address] [place] [address] Dr. Rajan Kraft MONO # 0.5 103/ul Normal 0.3-0.8 [facility] Comment on above: Performed By: #### C BC #### [facility] [address] [place] [address] Dr. Rajan Kraft Monocytes/100 WBC (Bld) 6.4 % Normal 1.7-12.0 [facility] Comment on above: Performed By: #### C BC #### [facility] [address] [place] [address] Dr. Rajan Kraft NEUT # 4.8 103/ul Normal 1.4-6.5 [facility] Comment on above: Performed By: #### C BC #### [facility] [address] [place] [address] Dr. Rajan Kraft Neutrophils/100 WBC (Bld) 58.9 % Normal 43.0-75.0 [facility] Comment on above: Performed By: #### C BC #### [facility] [address] [place] [address] [address] Rajan Kraft Platelet mean volume (Bld) [Entitic vol] 9.7 fL Normal 9.5-13.5 [facility] Comment on above: Performed By: #### C BC #### [facility] [address] [place] [address] [address] Rajan Kraft PLT 207 103/ul Normal 150-450 [facility] Comment on above: Performed By: #### C BC #### [facility] [address] [place] [address] Dr. Rajan Kraft RBC 5.06 106/ul Normal 4.70-6.10 [facility] Comment on above: Performed By: #### C BC #### [facility] [address] [place] [address] Dr. Rajan Kraft WBC 8.2 103/ul Normal 4.0-11.0 [facility] Comment on above: Performed By: #### C BC #### [facility] [address] [place] [address] Dr. Rajan Kraft GLYCOHEMOGLOBIN A1Con 2022 ADA RECOMMENDATION SEE BELOW Normal [facility] Comment on above: Result Comment: ADA RECOMMENDED LIMIT 4.0 - 6.0 ADA THERAPEUTIC TARGET < 7.0 ACTION SUGGESTED > 7.0 Performed By: #### A 1C #### [facility] [address] [place] [address] Dr. Rajan Kraft Glucose [Mass/Vol] 123 mg/dL Normal [facility] Comment on above: Performed By: #### A 1C #### [facility] [address] [place] [address] Dr. Rajan Kraft HbA1c (Bld) [Mass fraction] 5.9 % Normal 4.5-6.2 [facility] Comment on above: Performed By: #### A 1C #### [facility] [address] [place] [address] Dr. Rajan Kraft LIPID PROFILEon 08-20-2022 CHOL-HDL RATIO NORM SEE BELOW Normal [facility] Comment on above: Result Comment: 3.3 - 4.4 LOW RISK 4.4 - 7.1 AVERAGE RISK 7.1 - 11.0 MODERATE RISK >11.0 HIGH RISK Performed By: #### C MP, URIC, LIPID #### [facility] [address] [place] [address] [address] Rajan Kraft Cholesterol [Mass/Vol] 183 mg/dL Normal <=200 [facility] Comment on above: Performed By: #### C MP, URIC, LIPID #### [facility] [address] [place] [address] [address] Rajan Kraft Cholesterol in HDL [Mass/Vol] 47 mg/dL Normal 40-60 [facility] Comment on above: Performed By: #### C MP, URIC, LIPID #### [facility] [address] [place] [address] [address] Rajan Kraft Cholesterol in LDL [Mass/Vol] 115.8 mg/dL Normal [facility] Comment on above: Performed By: #### C MP, URIC, LIPID #### [facility] [address] [place] [address] [address] Rajan Kraft Cholesterol.total/Cho lesterol in HDL [Mass ratio] 3.9 {ratio} Normal [facility] Comment on above: Performed By: #### C MP, URIC, LIPID #### [facility] [address] [place] [address] [address] Rajan Kraft HDL NORMAL > or = 60 mg/dl - LOW CARDIOVASCULAR RISK <40 mg/dl - HIGH CARDIOVASCULAR RISK Normal [facility] Comment on above: Performed By: #### C MP, URIC, LIPID #### [facility] [address] [place] [address] [address] Rajan Kraft LDL CALC NORMAL SEE BELOW Normal [facility] Comment on above: Result Comment: <100 mg/dl OPTIMAL 100 - 129 mg/dl NEAR OR ABOVE OPTIMAL 130 - 159 mg/dl BORDERLINE HIGH 160 - 189 mg/dl HIGH >190 mg/dl VERY HIGH Performed By: #### C MP, URIC, LIPID #### [facility] [address] [place] [address] [address] Rajan Kraft Triglyceride [Mass/Vol] 101 mg/dL Normal <=150 [facility] Comment on above: Performed By: #### C MP, URIC, LIPID #### [facility] [address] [place] [address] [address] Rajan Kraft VLDL CALC 20.2 mg/dL Normal [facility] Comment on above: Performed By: #### C MP, URIC, LIPID #### [facility] [address] [place] [address] Dr. Rajan Kraft PROF 14(COMP METB)on 023 Albumin [Mass/Vol] 3.8 g/dL Normal 3.4-5.0 [facility] Comment on above: Performed By: #### C MP, URIC, LIPID #### [facility] [address] [place] [address] Dr. Rajan Kraft Albumin/Globulin [Mass ratio] 1.1 {ratio} Normal [facility] Comment on above: Performed By: #### C MP, URIC, LIPID #### [facility] [address] [place] [address] Dr. Rajan Kraft ALP [Catalytic activity/Vol] 59 U/L Normal 46-116 [facility] Comment on above: Performed By: #### C MP, URIC, LIPID #### [facility] [address] [place] [address] Dr. Rajan Kraft ALT [Catalytic activity/Vol] 55 U/L Normal 16-63 [facility] Comment on above: Performed By: #### C MP, URIC, LIPID #### [facility] [address] [place] [address] Dr. Rajan Kraft Anion gap [Moles/Vol] 13.7 mmol/L Normal [facility] Comment on above: Performed By: #### C MP, URIC, LIPID #### [facility] [address] [place] [address] Dr. Rajan Kraft AST [Catalytic activity/Vol] 26 U/L Normal 15-37 [facility] Comment on above: Performed By: #### C MP, URIC, LIPID #### [facility] [address] [place] [address] Dr. Rajan Kraft Bilirubin [Mass/Vol] 0.8 mg/dL Normal 0.2-1.0 [facility] Comment on above: Performed By: #### C MP, URIC, LIPID #### [facility] [address] [place] [address] Dr. Rajan Kraft Calcium [Mass/Vol] 8.9 mg/dL Normal 8.5-10.1 [facility] Comment on above: Performed By: #### C MP, URIC, LIPID #### [facility] [address] [place] [address] Dr. Rajan Kraft Chloride [Moles/Vol] 105 mmol/L Normal 98-107 [facility] Comment on above: Performed By: #### C MP, URIC, LIPID #### [facility] [address] [place] [address] Dr. Rajan Kraft CO2 [Moles/Vol] 28.2 mmol/L Normal 21.0-32.0 [facility] Comment on above: Performed By: #### C MP, URIC, LIPID #### [facility] [address] [place] [address] Dr. Rajan Kraft Creatinine [Mass/Vol] 1.68 mg/dL Critically high 0.70-1.30 [facility] Comment on above: Performed By: #### C MP, URIC, LIPID #### [facility] [address] [place] [address] Dr. Rajan Kraft EGFR-AF SUDANESE 51 mL/min/1.73m2 Critically low >=60 [facility] Comment on above: Performed By: #### C MP, URIC, LIPID #### [facility] [address] [place] [address] Dr. Rajan Kraft EGFR-NON AF SUDANESE 42 mL/min/1.73m2 Critically low >=60 [facility] Comment on above: Performed By: #### C MP, URIC, LIPID #### [facility] [address] [place] [address] Dr. Rajan Kraft Globulin (S) [Mass/Vol] 3.6 g/dL Normal [facility] Comment on above: Performed By: #### C MP, URIC, LIPID #### [facility] [address] [place] [address] [address] Rajan Kraft Glucose [Mass/Vol] 102 mg/dL Normal 74-106 [facility] Comment on above: Performed By: #### C MP, URIC, LIPID #### [facility] [address] [place] [address] [address] Rajan Kraft Potassium [Moles/Vol] 3.9 mmol/L Normal 3.5-5.1 [facility] Comment on above: Performed By: #### C MP, URIC, LIPID #### [facility] [address] [place] [address] [address] Rajan Kraft Protein [Mass/Vol] 7.4 g/dL Normal 6.4-8.2 [facility] Comment on above: Performed By: #### C MP, URIC, LIPID #### [facility] [address] [place] [address] Dr. Rajan Kraft Sodium [Moles/Vol] 143 mmol/L Normal 136-145 [facility] Comment on above: Performed By: #### C MP, URIC, LIPID #### [facility] [address] [place] [address] [address] Rajan Kraft Urea nitrogen [Mass/Vol] 21.0 mg/dL Critically high 7.0-18.0 [facility] Comment on above: Performed By: #### C MP, URIC, LIPID #### [facility] [address] [address] [address] Rajan Kraft Urea nitrogen/Creatinine [Mass ratio] 12.5 mg/mg Normal [facility] Comment on above: Performed By: #### C MP, URIC, LIPID #### [facility] [address] [place] [address] Dr. Rajan Kraft URIC ACID SERUMon 08-20-2022 Urate [Mass/Vol] 7.6 mg/dL Critically high 3.5-7.2 [facility] Comment on above: Performed By: #### C MP, URIC, LIPID #### [facility] [address] [address] [address] Rajan Kraft LIPID PROFILEon 10-17-2021 CHOL-HDL RATIO NORM SEE BELOW Normal [facility] Comment on above: Result Comment: 3.3 - 4.4 LOW RISK 4.4 - 7.1 AVERAGE RISK 7.1 - 11.0 MODERATE RISK >11.0 HIGH RISK Performed By: #### L IPID, LIVER #### [facility] [address] [place] [address] [address] Rajan Kraft Cholesterol [Mass/Vol] 192 mg/dL Normal <=200 [facility] Comment on above: Performed By: #### L IPID, LIVER #### [facility] [address] [place] [address] [address] Rajan Kraft Cholesterol in HDL [Mass/Vol] 37 mg/dL Normal [facility] Comment on above: Performed By: #### L IPID, LIVER #### [facility] [address] [address] [address] Rajan Kraft Cholesterol in LDL [Mass/Vol] 127.8 mg/dL Normal [facility] Comment on above: Performed By: #### L IPID, LIVER #### [facility] [address] [address] [address] Rajan Kraft Cholesterol.total/Cho lesterol in HDL [Mass ratio] 5.2 {ratio} Normal [facility] Comment on above: Performed By: #### L IPID, LIVER #### [facility] [address] [address] [address] Rajan Kraft HDL NORMAL > or = 60 mg/dl - LOW CARDIOVASCULAR RISK <40 mg/dl - HIGH CARDIOVASCULAR RISK Normal [facility] Comment on above: Performed By: #### L IPID, LIVER #### [facility] [address] [address] [address] Rajan Kraft LDL CALC NORMAL SEE BELOW Normal [facility] Comment on above: Result Comment: <100 mg/dl OPTIMAL 100 - 129 mg/dl NEAR OR ABOVE OPTIMAL 130 - 159 mg/dl BORDERLINE HIGH 160 - 189 mg/dl HIGH >190 mg/dl VERY HIGH Performed By: #### L IPID, LIVER #### [facility] [address] [address] [address] Rajan Kraft Triglyceride [Mass/Vol] 136 mg/dL Normal <=150 [facility] Comment on above: Performed By: #### L IPID, LIVER #### [facility] [address] [place] [address] Dr. Rajan Kraft VLDL CALC 27.2 mg/dL Normal [facility] Comment on above: Performed By: #### L IPID, LIVER #### [facility] [address] [address] [address] Rajan Kraft LIVER PROFILEon 10-17-2021 Albumin [Mass/Vol] 3.6 g/dL Normal 3.5-5.0 [facility] Comment on above: Performed By: #### L IPID, LIVER #### [facility] [address] [place] [address] Dr. Rajan Kraft Albumin/Globulin [Mass ratio] 1.0 {ratio} Normal [facility] Comment on above: Performed By: #### L IPID, LIVER #### [facility] [address] [place] [address] Dr. Rajan Kraft ALP [Catalytic activity/Vol] 63 U/L Normal 38-126 [facility] Comment on above: Performed By: #### L IPID, LIVER #### [facility] [address] [place] [address] Dr. Rajan Kraft ALT [Catalytic activity/Vol] 49 U/L Normal 21-72 [facility] Comment on above: Performed By: #### L IPID, LIVER #### [facility] [address] [place] [address] Dr. Rajan Kraft AST [Catalytic activity/Vol] 23 U/L Normal 17-59 [facility] Comment on above: Performed By: #### L IPID, LIVER #### [facility] [address] [place] [address] Dr. Rajan Kraft BILI, CONJUGATED 0.1 mg/dL Normal 0.0-0.3 [facility] Comment on above: Performed By: #### L IPID, LIVER #### [facility] [address] [place] [address] Dr. Rajan Kraft Bilirubin [Mass/Vol] 0.7 mg/dL Normal 0.2-1.3 [facility] Comment on above: Performed By: #### L IPID, LIVER #### [facility] [address] [address] [address] Rajan Kraft Globulin (S) [Mass/Vol] 3.6 g/dL Normal [facility] Comment on above: Performed By: #### L IPID, LIVER #### [facility] [address] [place] [id number] [address] Rajan Kraft Protein [Mass/Vol] 7.2 g/dL Normal 6.1-8.2 [facility] Comment on above: Performed By: #### L IPID, LIVER #### [facility] [address] [place] [address] [address] Rajan Kraft General Surgery Office/Clini c [...] SARS-CoV-2 (COVID-19) Ad26 vaccine 10/21/2020 Recorded Normal [facility] Comment on above: Result Comment: Elec tronically [...] Hyperlipidemia Screening for malignant neoplasm of colon [facility] Reminderson 09-04-2021 Reminders - From: Hamida Israel LPN To: [facility] - Clinical; Sent: 09/04/2021 15:30:08 EST Show up: 07/19/2026 07:00:00 EST Subject: colonoscopy recall Due Date/Time: 08/19/2026 07:00:00 EST Reminder/Recall Patient is due for colonoscopy 08/19/2026 due to history of tubular adenoma. Normal [facility] Pathology Noteon 08-27-2021 Pathology Note [id number] 4#1.00CD:127 [facility] Outside Colonoscopyon 2021 Outside Colonoscopy [id number] #1.00CD:127 [facility] Lab Reportson 08-17-2021 Lab Reports [id number] #1.00CD:127 [facility] Pre-Certification Formon Pre-Certification Form [id number] 8#1.00CD:127 [facility] Letter [facility] July 15, 2021 Agus Ruff, [address] [facility] [place] [address] Re: NITHIN VU Date of : 1965 Thank you for your referral of Nithin Vu who was seen on consultation on 07/10/2021 for screening colonoscopy. I have enclosed my consultation note for your review. I will be happy to follow Nithin. Sincerely, Ravindra Collado MD General Surgery Normal [facility] Consent for Procedure/Surger yon 07-13-2021 Consent for Procedure/Surgery [id number] #1.00CD:127 Normal [facility] Patient Educationon 07-12-20 21 Patient Education Radiology [...] slower pace than normal. ? Eat soft, ehqg-as-bphvao foods. ? Take wpet-htg-vovloxm or prescription medicines only as told by [...] 03/08/2005 Document Revised: 05/17/2018 Document Reviewed: 10/05/2016 [email or web address] Patient Education ? 2019 [email or web address]. [facility] Ambulatory Clinical Summaryo n 07-10-2021 Ambulatory Clinical Summary {[id number]}CD:[id number] [facility] Physician Referralon 021 Physician Referral [id number] #1.00CD:127 [facility] Encounters Encounter Date Encounter Type Care Provider Facility Start: 08-20-2022 End: 08-21-[address] AGUS RUFF Facility:[facility] Start: 10-17-2021 End: 10-18-[address] AGUS RUFF Facility:[facility] Start: 09-08-[address] AGUS RUFF Facility :[facility] Procedures Date Procedure Procedure Detail Performing Clinician Start: 08-20-[address] ABDIEL RUFF Comment on above: Performed By: #### P [facility] #### [facility] [address] [place] [address] Dr. Rajan Kraft Payers Date Payer Category Payer Unknown [id number] [id number] [id number] 1965 Unknown [id number] 1965 Unknown [id number] 1960 Self-pay [id number] 1960 Unknown [id number] Clinical Note 07-12-2021 Note Date & Type Note Facility 07-12-2021 Note Chief Complaint consultation for screening colonoscopy [facility] Staff 56 year old male presents on [...] Recorded SARS-CoV-2 (COVID-19) Ad26 vaccine 10/21/2020 Recorded [facility] Comment on above: Result Comment: Elec tronically [...] section and content) DATE CREATED AUTHOR 10/24/2021 [facility] DATE CREATED AUTHOR AUTHOR'S ORGANIZ ATION 08/21/2022 [facility] FOR RECORDS PERTAINING TO PATIENTS [...] BE BASED ON THE PRIMARY CLINICAL RECORDS. [facility]. provides no warranty or guarantee of the accuracy or completeness of information in this document.
[2023-08-27 09:45] LABS: Creatinine Urine Random 74.51 mg/dL (20.00-300.00); Total Protein Urine Random <6.0 mg/dL (<=11.9)
[2023-08-27 10:19] LABS: Total Volume 24 Hour Urine 1900 mL/24hr
[2023-08-27 10:56] LABS: Body Surface Area 2.3778
[2023-08-27 15:26] LABS: Creatinine Clearance Urine 43.35 mL/min (85.00-125.00)
== END 2023-08-27 08:45 | disposition home or self-care (01) ==
LOC: LAB 08:44
PROVIDERS: PCP Family Medicine; Visit Provider Family Medicine
DX: N28.9 Disorder of kidney and ureter, unspecified (principal)
CPT/HCPCS: 36415; 82575; 84156

== ENCOUNTER 2023-09-01 07:48 | Outpatient (OUT) | payer BC, SELFPAY ==
--- OUTSIDE RECORDS SUMMARY | 2023-09-01 07:51 | XMS_ITS | CCD ---
Author Name Unknown Address [address] [place] [id number] Organization [facility] Care Team Providers Care State Wildlife Officer Name Role Phone ELZBIETA, DR GOLDSMITH Admitting [...] 34.0 uIU/mL Critically high 2.6-24.9 [facility] Comment on above: Performed By: #### I NSULIN #### [facility] [address] [place] [address] Dr. Rajan Kraft CBC AUTO DIFFon 08-20-2022 BASO # 0.1 103/ul Normal 0.0-0.1 [facility] Comment on above: Performed By: #### C BC #### [facility] [address] [address] [address] Rajan Kraft Basophils/100 WBC (Bld) 0.6 % Normal 0.2-2.0 [facility] Comment on above: Performed By: #### C BC #### [facility] [address] [address] [address] Rajan Kraft EO # 0.2 103/ul Normal 0.0-0.7 [facility] Comment on above: Performed By: #### C BC #### [facility] [address] [place] [address] Dr. Rajan Kraft Eosinophils/100 WBC (Bld) 1.9 % Normal 0.9-7.0 [facility] Comment on above: Performed By: #### C BC #### [facility] [address] [place] [address] Dr. Rajan Kraft Erythrocyte distribution width (RBC) [Ratio] 12.8 % Normal 11.0-15.0 [facility] Comment on above: Performed By: #### C BC #### [facility] [address] [place] [address] Dr. Rajan Kraft Hematocrit (Bld) [Volume fraction] 51.8 % Normal 42.0-54.0 [facility] Comment on above: Performed By: #### C BC #### [facility] [address] [place] [address] Dr. Rajan Kraft Hemoglobin (Bld) [Mass/Vol] 15.8 g/dL Normal 14.0-18.0 [facility] Comment on above: Performed By: #### C BC #### [facility] [address] [place] [address] Dr. Rajan Kraft IG # 0.02 10e3/ul Normal 0.00-0.03 [facility] Comment on above: Performed By: #### C BC #### [facility] [address] [place] [address] Dr. Rajan Kraft IG % 0.2 % Normal 0.0-0.5 [facility] Comment on above: Performed By: #### C BC #### [facility] [address] [place] [address] Dr. Rajan Kraft LYMPH # 2.6 103/ul Normal 1.2-3.8 [facility] Comment on above: Performed By: #### C BC #### [facility] [address] [place] [address] Dr. Rajan Kraft Lymphocytes/100 WBC (Bld) 32.0 % Normal 20.5-60.0 [facility] Comment on above: Performed By: #### C BC #### [facility] [address] [place] [address] Dr. Rajan Kraft MANUAL DIFF REQ NO Normal [facility] Comment on above: Performed By: #### C BC #### [facility] [address] [place] [address] Dr. Rajan Kraft MCH (RBC) [Entitic mass] 31.2 pg Normal 25.9-34.0 [facility] Comment on above: Performed By: #### C BC #### [facility] [address] [place] [address] Dr. Rajan Kraft MCHC (RBC) [Mass/Vol] 30.5 g/dL Normal 29.9-35.2 [facility] Comment on above: Performed By: #### C BC #### [facility] [address] [place] [address] Dr. Rajan Kraft MCV (RBC) [Entitic vol] 102.4 fL Critically high 80.0-94.0 [facility] Comment on above: Performed By: #### C BC #### [facility] [address] [place] [address] Dr. Rajan Kraft MONO # 0.5 103/ul Normal 0.3-0.8 [facility] Comment on above: Performed By: #### C BC #### [facility] [address] [place] [address] Dr. Rajan Kraft Monocytes/100 WBC (Bld) 6.4 % Normal 1.7-12.0 [facility] Comment on above: Performed By: #### C BC #### [facility] [address] [place] [address] Dr. Rajan Kraft NEUT # 4.8 103/ul Normal 1.4-6.5 [facility] Comment on above: Performed By: #### C BC #### [facility] [address] [place] [address] Dr. Rajan Kraft Neutrophils/100 WBC (Bld) 58.9 % Normal 43.0-75.0 [facility] Comment on above: Performed By: #### C BC #### [facility] [address] [address] [address] Rajan Kraft Platelet mean volume (Bld) [Entitic vol] 9.7 fL Normal 9.5-13.5 [facility] Comment on above: Performed By: #### C BC #### [facility] [address] [address] [address] Rajan Kraft PLT 207 103/ul Normal 150-450 [facility] Comment on above: Performed By: #### C BC #### [facility] [address] [place] [address] Dr. Rajan Kraft RBC 5.06 106/ul Normal 4.70-6.10 [facility] Comment on above: Performed By: #### C BC #### [facility] [address] [place] [address] Dr. Rajan Kraft WBC 8.2 103/ul Normal 4.0-11.0 [facility] Comment on above: Performed By: #### C BC #### [facility] [address] [place] [address] Dr. Rajan Kraft GLYCOHEMOGLOBIN A1Con 2022 ADA RECOMMENDATION SEE BELOW Normal [facility] Comment on above: Result Comment: ADA RECOMMENDED LIMIT 4.0 - 6.0 ADA THERAPEUTIC TARGET < 7.0 ACTION SUGGESTED > 7.0 Performed By: #### A 1C #### [facility] [address] [place] [address] Dr. Rajan Kraft Glucose [Mass/Vol] 123 mg/dL Normal [facility] Comment on above: Performed By: #### A 1C #### [facility] [address] [place] [address] Dr. Rajan Kraft HbA1c (Bld) [Mass fraction] 5.9 % Normal 4.5-6.2 [facility] Comment on above: Performed By: #### A 1C #### [facility] [address] [place] [address] Dr. Rajan Kraft LIPID PROFILEon 08-20-2022 CHOL-HDL RATIO NORM SEE BELOW Normal [facility] Comment on above: Result Comment: 3.3 - 4.4 LOW RISK 4.4 - 7.1 AVERAGE RISK 7.1 - 11.0 MODERATE RISK >11.0 HIGH RISK Performed By: #### C MP, URIC, LIPID #### [facility] [address] [address] [address] Rajan Kraft Cholesterol [Mass/Vol] 183 mg/dL Normal <=200 [facility] Comment on above: Performed By: #### C MP, URIC, LIPID #### [facility] [address] [address] [address] Rajan Kraft Cholesterol in HDL [Mass/Vol] 47 mg/dL Normal 40-60 [facility] Comment on above: Performed By: #### C MP, URIC, LIPID #### [facility] [address] [address] [address] Rajan Kraft Cholesterol in LDL [Mass/Vol] 115.8 mg/dL Normal [facility] Comment on above: Performed By: #### C MP, URIC, LIPID #### [facility] [address] [address] [address] Rajan Kraft Cholesterol.total/Cho lesterol in HDL [Mass ratio] 3.9 {ratio} Normal [facility] Comment on above: Performed By: #### C MP, URIC, LIPID #### [facility] [address] [address] [address] Rajan Kraft HDL NORMAL > or = 60 mg/dl - LOW CARDIOVASCULAR RISK <40 mg/dl - HIGH CARDIOVASCULAR RISK Normal [facility] Comment on above: Performed By: #### C MP, URIC, LIPID #### [facility] [address] [address] [address] Rajan Kraft LDL CALC NORMAL SEE BELOW Normal [facility] Comment on above: Result Comment: <100 mg/dl OPTIMAL 100 - 129 mg/dl NEAR OR ABOVE OPTIMAL 130 - 159 mg/dl BORDERLINE HIGH 160 - 189 mg/dl HIGH >190 mg/dl VERY HIGH Performed By: #### C MP, URIC, LIPID #### [facility] [address] [address] [address] Rajan Kraft Triglyceride [Mass/Vol] 101 mg/dL Normal <=150 [facility] Comment on above: Performed By: #### C MP, URIC, LIPID #### [facility] [address] [address] [address] Rajan Kraft VLDL CALC 20.2 mg/dL Normal [facility] Comment on above: Performed By: #### C MP, URIC, LIPID #### [facility] [address] [place] [address] Dr. Rajan Kraft PROF 14(COMP METB)on 023 Albumin [Mass/Vol] 3.8 g/dL Normal 3.4-5.0 [facility] Comment on above: Performed By: #### C MP, URIC, LIPID #### [facility] [address] [place] [address] Dr. Rajan Kraft Albumin/Globulin [Mass ratio] 1.1 {ratio} Normal [facility] Comment on above: Performed By: #### C MP, URIC, LIPID #### [facility] [address] [place] [address] Dr. Rajan Kraft ALP [Catalytic activity/Vol] 59 U/L Normal 46-116 [facility] Comment on above: Performed By: #### C MP, URIC, LIPID #### [facility] [address] [place] [address] Dr. Rajan Kraft ALT [Catalytic activity/Vol] 55 U/L Normal 16-63 [facility] Comment on above: Performed By: #### C MP, URIC, LIPID #### [facility] [address] [place] [address] Dr. Rajan Kraft Anion gap [Moles/Vol] 13.7 mmol/L Normal [facility] Comment on above: Performed By: #### C MP, URIC, LIPID #### [facility] [address] [place] [address] Dr. Rajan Kraft AST [Catalytic activity/Vol] 26 U/L Normal 15-37 [facility] Comment on above: Performed By: #### C MP, URIC, LIPID #### [facility] [address] [place] [address] Dr. Rajan Kraft Bilirubin [Mass/Vol] 0.8 mg/dL Normal 0.2-1.0 [facility] Comment on above: Performed By: #### C MP, URIC, LIPID #### [facility] [address] [place] [address] Dr. Rajan Kraft Calcium [Mass/Vol] 8.9 mg/dL Normal 8.5-10.1 [facility] Comment on above: Performed By: #### C MP, URIC, LIPID #### [facility] [address] [place] [address] Dr. Rajan Kraft Chloride [Moles/Vol] 105 mmol/L Normal 98-107 [facility] Comment on above: Performed By: #### C MP, URIC, LIPID #### [facility] [address] [place] [address] Dr. Rajan Kraft CO2 [Moles/Vol] 28.2 mmol/L Normal 21.0-32.0 [facility] Comment on above: Performed By: #### C MP, URIC, LIPID #### [facility] [address] [place] [address] Dr. Rajan Kraft Creatinine [Mass/Vol] 1.68 mg/dL Critically high 0.70-1.30 [facility] Comment on above: Performed By: #### C MP, URIC, LIPID #### [facility] [address] [place] [address] Dr. Rajan Kraft EGFR-AF VINCENTIAN 51 mL/min/1.73m2 Critically low >=60 [facility] Comment on above: Performed By: #### C MP, URIC, LIPID #### [facility] [address] [place] [address] Dr. Rajan Kraft EGFR-NON AF VINCENTIAN 42 mL/min/1.73m2 Critically low >=60 [facility] Comment on above: Performed By: #### C MP, URIC, LIPID #### [facility] [address] [place] [address] Dr. Rajan Kraft Globulin (S) [Mass/Vol] 3.6 g/dL Normal [facility] Comment on above: Performed By: #### C MP, URIC, LIPID #### [facility] [address] [address] [address] Rajan Kraft Glucose [Mass/Vol] 102 mg/dL Normal 74-106 [facility] Comment on above: Performed By: #### C MP, URIC, LIPID #### [facility] [address] [address] [address] Rajan Kraft Potassium [Moles/Vol] 3.9 mmol/L Normal 3.5-5.1 [facility] Comment on above: Performed By: #### C MP, URIC, LIPID #### [facility] [address] [address] [address] Rajan Kraft Protein [Mass/Vol] 7.4 g/dL Normal 6.4-8.2 [facility] Comment on above: Performed By: #### C MP, URIC, LIPID #### [facility] [address] [place] [address] Dr. Rajan Kraft Sodium [Moles/Vol] 143 mmol/L Normal 136-145 [facility] Comment on above: Performed By: #### C MP, URIC, LIPID #### [facility] [address] [address] [address] Rajan Kraft Urea nitrogen [Mass/Vol] 21.0 mg/dL Critically high 7.0-18.0 [facility] Comment on above: Performed By: #### C MP, URIC, LIPID #### [facility] [address] [address] [address] Rajan Kraft Urea nitrogen/Creatinine [Mass ratio] 12.5 mg/mg Normal [facility] Comment on above: Performed By: #### C MP, URIC, LIPID #### [facility] [address] [place] [address] Dr. Rajan Kraft URIC ACID SERUMon 08-20-2022 Urate [Mass/Vol] 7.6 mg/dL Critically high 3.5-7.2 [facility] Comment on above: Performed By: #### C MP, URIC, LIPID #### [facility] [address] [address] [address] Rajan Kraft LIPID PROFILEon 10-17-2021 CHOL-HDL RATIO NORM SEE BELOW Normal [facility] Comment on above: Result Comment: 3.3 - 4.4 LOW RISK 4.4 - 7.1 AVERAGE RISK 7.1 - 11.0 MODERATE RISK >11.0 HIGH RISK Performed By: #### L IPID, LIVER #### [facility] [address] [address] [address] Rajan Kraft Cholesterol [Mass/Vol] 192 mg/dL Normal <=200 [facility] Comment on above: Performed By: #### L IPID, LIVER #### [facility] [address] [address] [address] Rajan Kraft Cholesterol in HDL [Mass/Vol] 37 mg/dL Normal [facility] Comment on above: Performed By: #### L IPID, LIVER #### [facility] [address] [address] [address] Rajan Kraft Cholesterol in LDL [Mass/Vol] 127.8 mg/dL Normal [facility] Comment on above: Performed By: #### L IPID, LIVER #### [facility] [address] [address] [address] Rajan Kraft Cholesterol.total/Cho lesterol in HDL [Mass ratio] 5.2 {ratio} Normal [facility] Comment on above: Performed By: #### L IPID, LIVER #### [facility] [address] [address] [address] Rajan Kraft HDL NORMAL > or = 60 mg/dl - LOW CARDIOVASCULAR RISK <40 mg/dl - HIGH CARDIOVASCULAR RISK Normal [facility] Comment on above: Performed By: #### L IPID, LIVER #### [facility] [address] [address] [address] Rajan Kraft LDL CALC NORMAL SEE BELOW Normal [facility] Comment on above: Result Comment: <100 mg/dl OPTIMAL 100 - 129 mg/dl NEAR OR ABOVE OPTIMAL 130 - 159 mg/dl BORDERLINE HIGH 160 - 189 mg/dl HIGH >190 mg/dl VERY HIGH Performed By: #### L IPID, LIVER #### [facility] [address] [address] [address] Rajan Kraft Triglyceride [Mass/Vol] 136 mg/dL Normal <=150 [facility] Comment on above: Performed By: #### L IPID, LIVER #### [facility] [address] [place] [address] Dr. Rajan Kraft VLDL CALC 27.2 mg/dL Normal [facility] Comment on above: Performed By: #### L IPID, LIVER #### [facility] [address] [address] [address] Rajan Kraft LIVER PROFILEon 10-17-2021 Albumin [Mass/Vol] 3.6 g/dL Normal 3.5-5.0 [facility] Comment on above: Performed By: #### L IPID, LIVER #### [facility] [address] [place] [address] Dr. Rajan Kraft Albumin/Globulin [Mass ratio] 1.0 {ratio} Normal [facility] Comment on above: Performed By: #### L IPID, LIVER #### [facility] [address] [place] [address] Dr. Rajan Kraft ALP [Catalytic activity/Vol] 63 U/L Normal 38-126 [facility] Comment on above: Performed By: #### L IPID, LIVER #### [facility] [address] [place] [address] Dr. Rajan Kraft ALT [Catalytic activity/Vol] 49 U/L Normal 21-72 [facility] Comment on above: Performed By: #### L IPID, LIVER #### [facility] [address] [place] [address] Dr. Rajan Kraft AST [Catalytic activity/Vol] 23 U/L Normal 17-59 [facility] Comment on above: Performed By: #### L IPID, LIVER #### [facility] [address] [place] [address] Dr. Rajan Kraft BILI, CONJUGATED 0.1 mg/dL Normal 0.0-0.3 [facility] Comment on above: Performed By: #### L IPID, LIVER #### [facility] [address] [place] [address] Dr. Rajan Kraft Bilirubin [Mass/Vol] 0.7 mg/dL Normal 0.2-1.3 [facility] Comment on above: Performed By: #### L IPID, LIVER #### [facility] [address] [address] [address] Rajan Kraft Globulin (S) [Mass/Vol] 3.6 g/dL Normal [facility] Comment on above: Performed By: #### L IPID, LIVER #### [facility] [address] [id number] [address] Rajan Kraft Protein [Mass/Vol] 7.2 g/dL Normal 6.1-8.2 [facility] Comment on above: Performed By: #### L IPID, LIVER #### [facility] [address] [address] [address] Rajan Kraft General Surgery Office/Clini c [...] SARS-CoV-2 (COVID-19) Ad26 vaccine 10/21/2020 Recorded Normal [facility] Comment on above: Result Comment: Elec tronically [...] Hyperlipidemia Screening for malignant neoplasm of colon [facility] Reminderson 09-04-2021 Reminders - From: Hamida Israel LPN To: [facility] - Clinical; Sent: 09/04/2021 15:30:08 EST Show up: 07/19/2026 07:00:00 EST Subject: colonoscopy recall Due Date/Time: 08/19/2026 07:00:00 EST Reminder/Recall Patient is due for colonoscopy 08/19/2026 due to history of tubular adenoma. Normal [facility] Pathology Noteon 08-27-2021 Pathology Note [id number] 4#1.00CD:127 [facility] Outside Colonoscopyon 2021 Outside Colonoscopy [id number] #1.00CD:127 [facility] Lab Reportson 08-17-2021 Lab Reports [id number] #1.00CD:127 [facility] Pre-Certification Formon Pre-Certification Form [id number] 8#1.00CD:127 [facility] July 15, 2021 Agus Ruff, [address] [facility] [place] [address] Re: NITHIN VU Date of : 1965 Thank you for your referral of Nithin Vu who was seen on consultation on 07/10/2021 for screening colonoscopy. I have enclosed my consultation note for your review. I will be happy to follow Nithin. Sincerely, Ravindra Collado MD General Surgery Normal [facility] Consent for Procedure/Surger yon 07-13-2021 Consent for Procedure/Surgery [id number] #1.00CD:127 Normal [facility] Patient Educationon 07-12-20 21 Patient Education Radiology [...] slower pace than normal. ? Eat soft, hztv-rk-dxnhvw foods. ? Take olle-bkb-ofdemlv or prescription medicines only as told by [...] 03/08/2005 Document Revised: 05/17/2018 Document Reviewed: 10/05/2016 [employer] Patient Education ? 2019 [employer]ots. [facility] Ambulatory Clinical Summaryo n 07-10-2021 Ambulatory Clinical Summary {[id number]}CD:[id number] [facility] Physician Referralon 021 Physician Referral [id number] #1.00CD:127 [facility] Encounters Encounter Date Encounter Type Care Provider Facility Start: 08-20-2022 End: 08-21-[address] AGUS RUFF Facility:[facility] Start: 10-17-2021 End: 10-18-[address] AGUS RUFF Facility:[facility] Start: 09-08-[address] AGUS RUFF Facility :[facility] Procedures Date Procedure Procedure Detail Performing Clinician Start: 08-20-[address] ABDIEL RUFF Comment on above: Performed By: #### [facility] #### [facility] [address] [place] [address] Dr. Rajan Kraft Payers Date Payer Category Payer Unknown [id number] 1965 Unknown [id number] 1965 Unknown [id number] 1960 Self-pay [id number] 1960 Unknown [id number] Clinical Note 07-12-2021 Note Date & Type Note Facility 07-12-2021 Note Chief Complaint consultation for screening colonoscopy [facility] Staff 56 year old male presents [...] Recorded SARS-CoV-2 (COVID-19) Ad26 vaccine 10/21/2020 Recorded [facility] Comment on above: Result Comment: Elec tronically [...] section and content) DATE CREATED AUTHOR 10/24/2021 [facility] DATE CREATED AUTHOR AUTHOR'S ORGANIZ ATION 08/21/2022 [facility] FOR RECORDS PERTAINING TO PATIENTS [...] BE BASED ON THE PRIMARY CLINICAL RECORDS. [facility] [employer] [facility]. provides no warranty or guarantee of the accuracy or completeness of information in this document.
--- NOTE | 2023-09-01 07:54 | US_ITS ---
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 TECHNIQUE: Ultrasound examination was performed of the bladder. FINDINGS: Right Kidney: Normal in size, contour and cortical echotexture. The cortex measures 1.6 cm. No solid cortical mass, suspicious or obstructing nephrolithiasis Height: 5.8 cm Length: 9.9 cm Width: 5.4 cm Left Kidney: Normal in size, contour and cortical echotexture. The cortex measures 1.5 cm. No solid cortical mass, suspicious or obstructing nephrolithiasis Height: 6.1 cm Length: 10.3 cm Width: 5.4 cm Urinary bladder measures 9.5 x 6.4 x 7.1 cm a volume of 301 mL. The bladder wall is minimally thickened measuring 3.7 mm No post void urinary bladder residual Ureteral jets: Visualized US/US renal bladder IMPRESSION: Minimal thickening of the urinary bladder wall focal mass Electronically authenticated by: ANTHONY LEUNG Date: 09/01/2023 09:11
== END 2023-09-01 07:49 | disposition home or self-care (01) ==
LOC: US 07:48
PROVIDERS: PCP Family Medicine; Visit Provider Family Medicine
DX: N28.9 Disorder of kidney and ureter, unspecified (principal)
CPT/HCPCS: 76770

== ENCOUNTER 2024-08-16 10:20 | Outpatient (OUT) | payer BC, SELFPAY ==
[2024-08-16 10:48] LABS: Basophils Absolute Auto 0.1 10^3/uL (0.0-0.1); Basophils Percent Auto 0.6 % (0.2-2.0); Eosinophils Absolute Auto 0.2 10^3/uL (0.0-0.7); Eosinophils Percent Auto 1.9 % (0.9-7.0); Hematocrit 51.3 % (42.0-54.0); Hemoglobin 16.8 g/dL (14.0-18.0); Immature Granulocytes Abs Auto 0.03 10^3/uL (0.00-0.03); Immature Granulocytes Pct Auto 0.3 % (0.0-0.5); Lymphocytes Absolute Auto 2.8 10^3/uL (1.2-3.8); Lymphocytes Percent Auto 31.6 % (20.5-60.0); Mean Corpuscular HGB Conc 32.7 g/dL (29.9-35.2); Mean Corpuscular Hemoglobin 30.6 pg (25.9-34.0); Mean Corpuscular Volume 93.4 fL (80.0-94.0); Mean Platelet Volume 9.3 fL (9.5-13.5); Monocytes Absolute Auto 0.6 10^3/uL (0.3-0.8); Monocytes Percent Auto 7.3 % (1.7-12.0); Neutrophils Absolute Auto 5.1 10^3/uL (1.4-6.5); Neutrophils Percent Auto 58.3 % (43.0-75.0); Platelet Count 223 10^3/uL (150-450); Red Blood Count 5.49 10^6/uL (4.70-6.10); Red Cell Distribution Width 12.1 % (11.0-15.0); White Blood Count 8.7 10^3/uL (4.0-11.0)
[2024-08-16 11:13] LABS: Estimated Average Glucose 120 mg/dL; Glycohemoglobin A1C 5.8 % (4.5-6.2)
[2024-08-16 11:19] LABS: Alanine Aminotransferase 40 U/L (16-63); Albumin Globulin Ratio 0.9; Albumin Level 3.6 g/dL (3.4-5.0); Alkaline Phosphatase 63 U/L (46-116); Anion Gap 13.4; Aspartate Amino Transferase 19 U/L (15-37); BUN Creatinine Ratio 8.3; Bilirubin Total 0.8 mg/dL (0.2-1.0); Calcium 9.1 mg/dL (8.5-10.1); Chloride 105 mmol/L (98-107); Chol HDL Ratio 6.4; Cholesterol 263 mg/dL (<=200); Estimated GFR (African America 47 (>=60 mL/min/1.73m^2); Estimated GFR (Non-African Ame 38 (>=60 mL/min/1.73m^2); Globulin 3.8 g/dL; Glucose 110 mg/dL (74-106); HDL Cholesterol 41 mg/dL (40-60); Potassium 4.4 mmol/L (3.5-5.1); Sodium 142 mmol/L (136-145); Total Protein 7.4 g/dL (6.4-8.2); Triglycerides 117 mg/dL (<=150); VLDL CHOLESTEROL 23.4 mg/dL
[2024-08-16 12:05] LABS: Prostate Specific Antigen Scrn 0.62 ng/mL (<=4.00)
== END 2024-08-16 10:21 | disposition home or self-care (01) ==
LOC: LAB 10:21
PROVIDERS: PCP Family Medicine; Visit Provider Family Medicine
DX: Z00.00 Encounter for general adult medical examination without abnormal findings (principal)
CPT/HCPCS: 36415; 80053; 80061; 83036; 85025; G0103